=== PATIENT | male | born 2000 | race Two or more races ===

== ENCOUNTER 2020-04-13 21:41 | Emergency (ER) | payer MEDICAID, OTHER ==
[~2020-04-13] VITALS: Ht 175.3 cm; Wt 68.0 kg
--- NOTE | 2020-04-13 21:56 | NUR ---
PT AAOX4. AMBULATORY WITH STEADY GAIT. BIBRA 878 FOR SI. PER RA THE PT ATTEMPTED TO BURN BOTH OF HIS FOREARMS USING A CREATIVE ART THERAPIST. PT PLACED IN BED 6 ON MONITOR AND PULSE OX. PT STATED HE WAS COVID POSITIVE 4 DAYS AGO. AWAITING MD FOR EVAL AND ORDERS.
[2020-04-13 22:42] LABS: BASOPHILS % (AUTO) 0.3 % (0.0-2.0); HEMATOCRIT 50 % (39-51); LYMPHOCYTES # (AUTO) 1.1 /CMM (0.8-4.8); LYMPHOCYTES % (AUTO) 8.3 % (20.0-44.0); MEAN CORPUSCULAR HGB CONC 34 g/dl (31.0-36.0); MEAN CORPUSCULAR VOLUME 92 fL (80-96); MONOCYTES # (AUTO) 0.8 /CMM (0.1-1.30); MONOCYTES % (AUTO) 6.5 % (2.0-12.0); NEUTROPHILS % (AUTO) 84.9 % (43.0-81.0); PLATELET COUNT (AUTO) 314 /CMM (150-450); RED BLOOD CELL COUNT(AUTO) 5.45 MIL/uL (4.5-6.0); WHITE BLOOD COUNT (AUTO) 12.9 K/uL (4.3-11.0)
[2020-04-13 22:45] LABS: BILIRUBIN,URINE NEGATIVE (NEGATIVE); COLOR,URINE YELLOW (YELLOW); LEUKOCYTE ESTERASE ,URINE NEGATIVE (NEGATIVE); NITRITE, URINE NEGATIVE (NEGATIVE); PROTEIN,URINE NEGATIVE (NEGATIVE); UGLUCOSE NEGATIVE (NEGATIVE); UROBILINOGEN,URINE 0.2 EU/dL (0.2)
[2020-04-13 22:59] LABS: ALANINE AMINOTRANSFERASE 30 U/L (12-78); ALBUMIN 4.9 g/dL (3.4-5.0); ALCOHOL, BLOOD < 3 mg/dL (0-0); ALKALINE PHOSPHATASE 57 U/L (46-116); ASPARTATE AMINOTRANSFERASE 24 U/L (15-37); BILIRUBIN,DIRECT 0.2 mg/dL (0.0-0.2); CARBON DIOXIDE 25 mmol/L (21-32); CHLORIDE 98 mmol/L (98-107); CREATININE 1.1 mg/dL (0.6-1.3); GLUCOSE 140 mg/dL (74-106); POTASSIUM 3.4 mmol/L (3.5-5.1); SODIUM SERUM 138 mmol/L (136-145); TOTAL PROTEIN, SERUM 8.9 g/dL (6.4-8.2); UREA NITROGEN, BLOOD 12 mg/dL (7-18)
[2020-04-13 23:03] LABS: ACETAMINOPHEN < 2 ug/ml (10-30)
[2020-04-13] MEDS ORDERED: SILVER SULFADIAZINE CREAM 25 GM TUBE ONE (23:14)
[2020-04-13] MEDS ORDERED: SILVER SULFADIAZINE CREAM 25 GM TUBE TP ONE (23:30)
--- NOTE | 2020-04-14 01:42 | NUR ---
PT PROVIDED WITH BLANKETS, VSS.
--- NOTE | 2020-04-14 05:59 | NUR ---
uYe perry in [facility] - 04/14/20 at 0620 by FADY PT JASON SI AND HI. STATED HE WOULD LIKE TO GO BACK TO HIS [facility].
--- NOTE | 2020-04-14 06:22 | NUR ---
PT AWARE OF PLAN OF CARE. REMAINS ON MONITOR AND PULSE OX. VSS.
--- NOTE | 2020-04-14 07:41 | NUR ---
ASSESSED PT ON BED ASLEEP EASIY AROUSABLE, NOT IN RESPIRATORY DISTRESS, V/S STABLE, KEPT RESTED AND COMFORTABLE. WILL CONTINUE TO MONITOR.
--- NOTE | 2020-04-14 09:32 | NUR ---
SW faxed Clinicals to [phone] [facility] for inpatient Psychiatric Treatment. NICHOLAS will follow up as needed.
--- NOTE | 2020-04-14 10:50 | NUR ---
[phone] UNIT 2 CALL AFTER 1132
--- NOTE | 2020-04-14 11:50 | NUR ---
REPORT GIVEN TO RENEE SORIA FOR BON.
--- NOTE | 2020-04-14 11:51 | NUR ---
[facility] CALLED ETA 1215 PER HAYLIE.
[2020-04-14 11:54] VITALS: BP 118/52
--- NOTE | 2020-04-14 11:55 | NUR ---
SS Note: Patient now refusing to go voluntary to [facility] for inpatient psychiatric Treatment. Patient now denies current SI. However, patient stated if he leaves from [facility] today he may hurt himself. Pt. asked to elaborate. Patient could not respond. NICHOLAS discussed case with Dr. Roblero & Clinical Sleeve Maker, Jese Vera. NICHOLAS called Events Associate, Heriberto Fuentes ,[phone] who stated he will come assess the pt.
--- NOTE | 2020-04-14 12:00 | NUR ---
CALLED TO CANCEL
--- NOTE | 2020-04-14 12:10 | NUR ---
CALLED [facility] ETA IS 15 MINS.
--- NOTE | 2020-04-14 12:38 | NUR ---
REPORT GIVEN TO EMT FOR PT TRANSFER TO [facility].
== END 2020-04-14 13:02 ==
LOC: ER 21:44 → EDBD 21:44 → ER 04-14 13:02
DX: R45.851 Suicidal ideations (principal); T22.212A Burn of second degree of left forearm, initial encounter; T22.211A Burn of second degree of right forearm, initial encounter; T31.0 Burns involving less than 10% of body surface; X76.XXXA Intentional self-harm by smoke, fire and flames, initial encounter; Y92.89 Other specified places as the place of occurrence of the external cause; F17.200 Nicotine dependence, unspecified, uncomplicated; Z59.0 Homelessness; F42.9 Obsessive-compulsive disorder, unspecified; Z20.822 Contact with and (suspected) exposure to COVID-19
CPT/HCPCS: 36415; 80048; 80076; 80299; 80307; 80320; 81003; 85025; 87426; 99285; C9803; G0480